=== PATIENT | female | born 1960 | race African-American/Black ===

== ENCOUNTER 2020-04-10 13:45 | Emergency (ER) | payer SELFPAY ==
[~2020-04-10] VITALS: Ht 175.3 cm; Wt 100.0 kg
--- NOTE | 2020-04-10 14:10 | PHYS DOC ---
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 No prior injury to left wrist. Is not on any anticoagulants. Not lose consciousness. Has no radiculopathy or midline neck pain. Cannot recall her last tetanus. Denies any preceding symptoms including dizziness, lightheadedness, shortness of breath, or chest pain. Does not wear contact lenses or glasses. Review of Systems: Review of Systems: Constitutional: Denies fever or chills. [] Eyes: Denies vision loss (can see clearly with eyelid opening) HENT: Denies nasal congestion or sore throat. [] Respiratory: Denies cough or shortness of breath. [] Cardiovascular: Denies chest pain or edema. [] GI: Denies abdominal pain, nausea, vomiting, bloody stools or diarrhea. [] : Denies dysuria. [] Musculoskeletal: Denies back pain or joint pain. [] Integument: Denies cyanosis or diaphoresis Neurologic: Denies headache, focal weakness or sensory changes, no midline neck pain Endocrine: Denies polyuria or polydipsia. [] Lymphatic: Denies swollen glands. [] Psychiatric: Denies depression or anxiety. [] Heart Score: Risk Factors: Risk Factors: DM, Current or recent (<one month) smoker, HTN, HLP, family history of CAD, obesity. Risk Scores: Score 0 - 3: 2.5% MACE over next 6 weeks - Discharge Home Score 4 - 6: 20.3% MACE over next 6 weeks - Admit for Clinical Observation Score 7 - 10: 72.7% MACE over next 6 weeks - Early Invasive Strategies Physical Exam: PE: Constitutional: Well developed, well nourished, no acute distress, non-toxic appearance. [] HENT: Normocephalic, atraumatic, bilateral external ears normal, oropharynx moist, no septal hematoma or hemotympanum, significant left periorbital swelling with left eyelid swelling and left lateral cheek swelling with superficial abrasions consistent with road rash, no lacerations Eyes: PERRLA, EOMI, conjunctiva normal, no discharge. [] Neck: Normal range of motion, no tenderness, supple, no stridor. [] Cardiovascular:Heart rate regular rhythm, no murmur [] Lungs & Thorax: Bilateral breath sounds clear to auscultation [] Abdomen: Bowel sounds normal, soft, no tenderness, no masses, no pulsatile masses. [] Skin: Warm, dry, no erythema, no rash. [] Back: No tenderness, no CVA tenderness. [] Extremities: left distal ulnar pain - tolerates pressure/palpation and has FROM, no pain over scaphoid or lunate, no cyanosis, no clubbing, ROM intact, no edema or obvious swelling or deformity, no pain over elbow or shoulder joint Neurologic: Alert and oriented X 3, normal motor function, normal sensory function, no focal deficits noted. [] Psychologic: Affect normal, judgement normal, mood normal. [] Nexus C-spine criteria are negative: There is no post midline tenderness, the patient is not intoxicated, there is a normal level of alertness, there are no focal neurologic deficits and there are no distracting injuries. Current Patient Data: Vital Signs: Vital Signs Date Time Temp Pulse Resp B/P (MAP) Pulse Ox O2 Delivery O2 Flow Rate FiO2 04/10/20 13:54 98.4 84 18 157/78 (104) 99 Room Air 98.4 EKG: EKG: [] Radiology/Procedures: Radiology/Procedures: [] IMAGING REPORT Signed PATIENT: LESIA ALVARADO ACCOUNT: [id number] : 1960 LOCATION: ER AGE: 59 SEX: F EXAM STATUS: PRE ER ORD. PHYSICIAN: JAMSHID HANSON DO REASON: facial lac/fall PROCEDURE: CT HEAD AND CERVICAL SPINE WO CT HEAD AND CERVICAL SPINE WO, CT MAXILLOFACIAL WO CONTRAST Date: 04/10/2020 2:17 PM Clinical Indication: facial lac/fall, pain Comparison: None. Technique: 5 mm axial tomographic images were obtained of the head without contrast. These were viewed on brain and bone windows. Axial helical images of the face were obtained without contrast. Axial and coronal reconstruction was performed. CT imaging of the cervical spine was performed without contrast. Coronal and sagittal reformatted images were performed. One or more of the following dose reduction techniques were utilized: Automated exposure control (AEC), Adjustment of mA and/or kV according to patient size, Use of iterative reconstruction technique such as ASiR, CT scan done according to ALARA and image gently/image wisely CT HEAD FINDINGS: The brain parenchyma is normal in attenuation. No intra- or extra-axial mass or fluid collection. No acute hemorrhage. The ventricles are normal in size, shape, and morphology. The heath-white matter junction is normal. The basilar cisterns are patent. The mastoid air cells are clear. No aggressive osseous lesion or fracture. CT FACE FINDINGS: There is no acute facial bone fracture. Left supraorbital soft tissue swelling. The paranasal sinuses are clear. The orbits are normal. The globes are intact. The nasal septum is slightly deviated to the left with a spur. Degenerative changes of the right temporomandibular joint. CT CERVICAL SPINE FINDINGS: The cervical spine is normally aligned. No acute fracture. No aggressive lytic or blastic osseous lesion. Mild multilevel degenerative disc height loss. No high-grade spinal canal stenosis or neural foraminal narrowing. The thyroid gland is normal. No cervical lymphadenopathy. The visualized aerodigestive tract is unremarkable. The visualized lung apices are clear. Impression: 1. No acute intracranial process. 2. No acute facial bone fracture. 3. No acute osseous abnormality of the cervical spine. Electronically signed by: Nghia Osuna MD (04/10/2020 2:41 PM) [id number] DICTATED and SIGNED BY: NGHIA OSUNA MD DATE: 04/10/20 1441 IMAGING REPORT Signed PATIENT: LESIA ALVARADO ACCOUNT: [id number] : 1960 LOCATION: ER AGE: 59 SEX: F EXAM STATUS: PRE ER ORD. PHYSICIAN: JAMSHID HANSON DO REASON: fall left wrist pain PROCEDURE: WRIST 3V LEFT Three-view left wrist radiographs 03/31/2020 CLINICAL HISTORY: Fall with injury to the left wrist. PA, lateral and oblique digital radiographs of the left wrist were obtained. No fracture or dislocation of the left wrist is seen. Severe degenerative changes are seen involving the first carpal metacarpal joint. Mild to moderate degenerative changes are seen involving the radiocarpal joint. IMPRESSION: No fracture or dislocation left wrist is seen. Electronically signed by: Eleazar Basilio MD (04/10/2020 2:42 PM) [id number] DICTATED and SIGNED BY: ELEAZAR BASILIO MD DATE: 04/10/20 1442 Course & Med Decision Making: Course & Med Decision Making Pertinent Labs and Imaging studies reviewed. (See chart for details) S/p accidental mechanical fall with facial abrasions and left periorbital facial contusion/hematoma. No vision impairment. CT imaging negative for any facial fracture, cervical spine injury or intracranial hemorrhage. Daughter present in both patient however given strict ED return precautions for severe headache, c onfusion, nausea, vomiting or neuro deficits (daughter will relay these symptoms to holds her patient the next 24 hours, pt on no AC). Tetanus updated. Wrist splint offered. Wound care instructions given. Encouraged urgent outpatient follow-up with PMD. Life-threatening processes were considered but are low suspicion at this time, given history and physical exam. Pt was educated on all prescription medications and adverse effects. All patient's questions were answered and pt was stable at time of discharge. Life/limb-threatening differential includes but is not limited to, intracranial hemorrhage, diffuse axonal injury, spinal cord syndrome, unstable cervical fracture or SCIWORA, fractures or joint dislocations, neurovascular injuries, organ injury or laceration, pneumothorax, pneumoperitoneum, pericardial tamponade, unstable pelvic fracture, compartment syndrome, flail chest or respiratory distress, burn injury or asphyxiation I spoken with the patient and her caregivers. I explained the patient's condition, diagnoses and treatment plan based on the information available to me at this time. I have answered the patient and her caregiver's questions and addressed any concerns. The patient and her caregivers have a good understanding of patient's diagnosis, condition and treatment plan as can be expected at this point. Vital signs have been stable. Patient's condition is stable and appropriate for discharge from the emergency department. Patient will pursue further outpatient evaluation with primary care physician or other designated or consulting physician as outlined in the discharge instructions. The patient and/or caregivers are agreeable to this plan of care and follow-up instructions have been explained in detail. The patient and/or ca regivers have received these instructions in written form and have expressed an understanding of the discharge instructions. The patient and/or caregivers are aware that any significant change of condition or worsening of symptoms should prompt immediate return to this or the closest emergency department or call to 911. Eloisa Disclaimer: Eloisa Disclaimer: This electronic medical record was generated, in whole or in part, using a voice recognition dictation system. Departure Departure Impression: Primary Impression: Fall Additional Impressions: Facial abrasion Need for Tdap vaccination Disposition: 01 DC HOME SELF CARE/HOMELESS Condition: STABLE Patient Instructions: Abrasions, Head Injury, Adult Additional Instructions: EMERGENCY DEPARTMENT GENERAL DISCHARGE INSTRUCTIONS Thank you for coming to [facility] Emergency Department (ED) today and trusting us with you care. We trust that you had a positive experience in our Emergency Department. If you wish to speak to the department management, you may call the Director at [phone]. YOUR FOLLOW UP INSTRUCTIONS ARE FOLLOWS: 1. Do you have a private Doctor? If you do not have a private doctor, please ask for a resource list of physicians or clinics that may be able to assist you with follow up care. 2. The Emergency Physicain has interpreted your x-rays. The X-Ray specialist will also review them. If there is a change in the findings, you will be notified in 48 hours when at all possible. 3. A lab test or culture has been done, your results will be reviewed and you will be notified if you need a change in treatment. ADDITIONAL INSTRUCTIONS AND INFORMATION: 1. Your care today has been supervised by a physician who is specially trained in emergency care. Many problems require more than one evaluation for a complete diagnosis and treatment. We recommend that you schedule your follow up appointment as recommended to ensure complete treatment of you illness or injury. If you are unable to obtain follow up care and continue to have a problem, or if your condition worsens, we recommend that you return to the ED. 2. We are not able to safely determine your condition over the phone nor are we able to give sound medical advice over the phone. For these safety reasons, if you call for medical advice we will ask you to come to the ED for further evaluation. 3. If you have any questions regarding these discharge instructions please call the ED at [phone]. SAFETY INFORMATION: In the interest of safety, wellness, and injury prevention; we encourage you to wear your sealbelt, if you smoke; quite smoking, and we encourage family to use a protective helmet for bicycling and other sporting events that present an increased risk for head injury. IF YOUR SYMPTOMS WORSEN OR NEW SYMPTOMS DEVELOP, OR YOU HAVE CONCERNS ABOUT YOUR CONDITION; OR IF YOUR CONDITION WORSENS WHILE YOU ARE WAITING FOR YOUR FOLLOW UP APPOINTMENT; EITHER CONTACT YOUR PRIMARY CARE DOCTOR, THE PHYSICIAN WHOSE NAME AND NUMBER YOU WERE GIVEN, OR RETURN TO THE ED IMMEDIATELY. [facility]ITAL[facility]AMSHID DO Apr 10, 2020 14:10
--- NOTE | 2020-04-10 14:44 | RAD ---
CT HEAD AND CERVICAL SPINE WO, CT MAXILLOFACIAL WO CONTRAST Date: 04/10/2020 2:17 PM Clinical Indication: facial lac/fall, pain Comparison: None. Technique: 5 mm axial tomographic images were obtained of the head without contrast. These were viewed on brain and bone windows. Axial helical images of the face were obtained without contrast. Axial and coronal reconstruction was performed. CT imaging of the cervical spine was performed without contrast. Coronal and sagittal reformatted images were performed. One or more of the following dose reduction techniques were utilized: Automated exposure control (AEC), Adjustment of mA and/or kV according to patient size, Use of iterative reconstruction technique such as ASiR, CT scan done according to ALARA and image gently/image wisely CT HEAD FINDINGS: The brain parenchyma is normal in attenuation. No intra- or extra-axial mass or fluid collection. No acute hemorrhage. The ventricles are normal in size, shape, and morphology. The heath-white matter junction is normal. The basilar cisterns are patent. The mastoid air cells are clear. No aggressive osseous lesion or fracture. CT FACE FINDINGS: There is no acute facial bone fracture. Left supraorbital soft tissue swelling. The paranasal sinuses are clear. The orbits are normal. The globes are intact. The nasal septum is slightly deviated to the left with a spur. Degenerative changes of the right temporomandibular joint. CT CERVICAL SPINE FINDINGS: The cervical spine is normally aligned. No acute fracture. No aggressive lytic or blastic osseous lesion. Mild multilevel degenerative disc height loss. No high-grade spinal canal stenosis or neural foraminal narrowing. The thyroid gland is normal. No cervical lymphadenopathy. The visualized aerodigestive tract is unremarkable. The visualized lung apices are clear. Impression: 1. No acute intracranial process. 2. No acute facial bone fracture. 3. No acute osseous abnormality of the cervical spine. Electronically signed by: Manuel Osuna MD (04/10/2020 2:41 PM) [id number]
--- NOTE | 2020-04-10 14:45 | RAD ---
Three-view left wrist radiographs 03/31/2020 CLINICAL HISTORY: Fall with injury to the left wrist. PA, lateral and oblique digital radiographs of the left wrist were obtained. No fracture or dislocation of the left wrist is seen. Severe degenerative changes are seen involving the first carpal metacarpal joint. Mild to moderate degenerative changes are seen involving the radiocarpal joint. IMPRESSION: No fracture or dislocation left wrist is seen. Electronically signed by: Eleazar Basilio MD (04/10/2020 2:42 PM) [id number]
[2020-04-10 14:49] VITALS: BP 145/80
[2020-04-10] MEDS ORDERED: IBUPROFEN 200 MG TABLET. PO ONE (15:45)
[2020-04-10] MEDS ORDERED: DIPH,PERTUSS(ACELL),TET VAC/PF 0.5 ML SYRINGE. VAX IM ONE (15:45)
== END 2020-04-10 16:07 | disposition home or self-care (01) ==
LOC: ER 13:45
DX: S00.212A Abrasion of left eyelid and periocular area, initial encounter (principal); M25.532 Pain in left wrist; R60.0 Localized edema; W01.0XXA Fall on same level from slipping, tripping and stumbling without subsequent striking against object, initial encounter; Y93.89 Activity, other specified; Y92.89 Other specified places as the place of occurrence of the external cause; Y99.8 Other external cause status
CPT/HCPCS: 70450; 70486; 72125; 73110; 90471; 90715; 99285